=== PATIENT | male | born 1970 | race Caucasian/White ===

== ENCOUNTER 2018-10-26 12:17 | Inpatient (IN) | payer OTHER ==
[2018-10-26] MEDS ORDERED: PROPOFOL 1,000 MG/100 ML VIAL IV ONE (12:36)
[2018-10-26 13:08] LABS: Absolute Lymphocytes (CBC) 3.5 K/uL (0.7-4.9); Absolute Monocytes 0.1 K/uL (0.1-1.3); Basophils % 0.4 % (0-1.3); Eosinophils % 2.1 % (0-4.4); Hematocrit 44.3 % (39.6-49.0); Lymphocytes % 27.1 % (15.3-44.8); MPV 9.2 fL (7.6-11.3); Monocytes % 1.1 % (3.3-12.3); RBC Red Blood Cell Count 4.82 M/uL (4.33-5.43)
[2018-10-26 13:12] LABS: Protime INR 1.18
[2018-10-26 13:14] LABS: Barbiturates NEGATIVE (NEGATIVE); Benzodiazepines NEGATIVE (NEGATIVE); Cocaine POSITIVE (NEGATIVE); METHAMPHETAM NEGATIVE (NEGATIVE); Methadone NEGATIVE (NEGATIVE); Opiates NEGATIVE (NEGATIVE); Phencyclidine NEGATIVE (NEGATIVE); THC Cannibis NEGATIVE (NEGATIVE)
--- NOTE | 2018-10-26 13:24 | RAD REPORT ---
EXAM DESCRIPTION: CT - Head Brain Wo Cont - 10/26/2018 1:08 pm CLINICAL HISTORY: Unresponsive COMPARISON: None TECHNIQUE: Computed axial tomography of the head was obtained. IV contrast was not requested. All CT scans are performed using dose optimization technique as appropriate and may include automated exposure control or mA/KV adjustment according to patient size. FINDINGS: An intracranial bleed is not seen . The ventricles are normal in caliber. No extra-axial fluid collection is noted. Fluid within the sinuses/ mastoids is not seen. Mucus retention cysts maxillary sinus IMPRESSION: No acute intracranial abnormality is seen. If patient's symptoms persist MRI of the bra in would be recommended.
[2018-10-26] MEDS ORDERED: VECURONIUM 10 MG/VIAL IV ONE ×2 (13:30→14:41)
[2018-10-26 13:48] LABS: Urine Blood TRACE (NEG); Urine Glucose NEGATIVE (NEG); Urine Protein 2+ (NEG); Urine Specific Gravity 1.025 (1.005-1.030); Urine pH 5.5 (5.0-7.0)
--- NOTE | 2018-10-26 13:56 | RAD REPORT ---
EXAM DESCRIPTION: Rubens Single View10/26/2018 12:53 pm CLINICAL HISTORY: Unresponsive COMPARISON: none FINDINGS: Endotracheal tube lies along the low The lungs appear clear of acute infiltrate. The heart is normal size Lucency is seen within the left upper quadrant IMPRESSION: Lucency within left upper quadrant probably representing air within bowel. Pneumoperito neum could also have this appearance. If the patient has clinical symptoms to suggest a perforated maxx wel a CT scan would be recommended. Dr Goff notified 1:50 p.m. October 26, 2018
[2018-10-26] MEDS ORDERED: NA CHLORIDE 0.9% 1,000 ML ONE (13:58)
[2018-10-26] MEDS ORDERED: METRONIDAZOLE 500mg IVPB 500 MG/100 ML BAG IV ONE (14:36)
[2018-10-26] MEDS ORDERED: Levofloxacin500mg IV 500 MG/100 ML BAG IV ONE (14:36)
[2018-10-26 14:43] LABS: ALT/SGPT 38 U/L (12-78); AST/SGOT 30 U/L (15-37); Albumin 3.4 g/dL (3.4-5.0); Alkaline Phosphatase 72 U/L (45-117); BUN Blood Urea Nitrogen 14 mg/dL (7-18); Bicarbonate 22 mmol/L (21-32); Bilirubin Direct 0.3 mg/dL (0-0.2); Glucose Level 207 mg/dL (74-106); Magnesium 1.8 mg/dL (1.8-2.4); NT PRO-BNP 11 pg/mL (<125); Protein, Total 6.4 g/dL (6.4-8.2); Sodium Level 144 mmol/L (136-145); Troponin (Emerg Dept Use Only) < 0.02 ng/mL (0.0-0.045)
[2018-10-26 14:45] LABS: Potassium 2.8 mmol/L (3.5-5.1)
[2018-10-26] MEDS ORDERED: VANCOMYCIN 1.5 GM in NA CHLORIDE 0.9% 500 ML IVPB ONE (15:00)
[2018-10-26 15:05] LABS: Barbiturates NEGATIVE (NEGATIVE); Benzodiazepines NEGATIVE (NEGATIVE); Cocaine POSITIVE (NEGATIVE); METHAMPHETAM NEGATIVE (NEGATIVE); Methadone NEGATIVE (NEGATIVE); Opiates NEGATIVE (NEGATIVE); Phencyclidine NEGATIVE (NEGATIVE); THC Cannibis NEGATIVE (NEGATIVE)
--- NOTE | 2018-10-26 15:19 | RAD REPORT ---
EXAM DESCRIPTION: CT - Chest Abdomen Pelvis W Cont - 10/26/2018 2:57 pm CLINICAL HISTORY: Chest pain, abdominal pain, abnormal chest film with possible intraperitoneal free air COMPARISON: Chest film October 26 TECHNIQUE: Following dynamic enhancement using 100 milliliters nonionic IV contrast, axial imaging o f the chest, abdomen and pelvis was performed. Biphasic technique was utilized through the abdomen. Oral contrast was administered. All CT scans are performed using dose optimization technique as appropriate and may include automated exposure control or mA/KV adjustment according to patient size. FINDINGS: Bilateral partial atelectasis of each lower lobe. Trace pleural fluid present. No suspicio us mass or consolidation. No pneumothorax. No significant aortic or pulmonary arterial tree finding. Mediastinal and hilar regions show no mass or abnormal lymphadenopathy. No chest wall mass or axillar y lymphadenopathy. No pericardial thickening or effusion. Endotracheal tube is in place with the tip terminating 2 cm above the low. NG tube extends into the stomach. The liver, spleen and pancreas show no suspicious findings. Gallbladder and biliary tree are unremark able. Gallstones can be occult on CT imaging. Symmetric renal function is seen with no mass or hydro nephrosis. No adrenal abnormalities. No acute small bowel or large bowel finding. Stomach is unremarkable. There is no appendicitis. No pe rforation or active bowel process identifiable. No free air, free fluid or inflammatory stranding. Pu nctate amount of air present in the urinary bladder not unexpected. A Sanchez catheter has been placed. No acute or destructive bony process. No significant vascular findings. IMPRESSION: No free air. CT chest shows partial atelectasis each lower lobe. No significant CT chest finding. ET tube and NG tube well positioned. No acute finding of the solid abdominal visceral or bowel. Liver is fatty infiltrated.
--- NOTE | 2018-10-26 15:58 | P.HP ---
Certification for Inpatient Patient admitted to: Inpatient With expected LOS: >2 Midnights Patient will require the following post-hospital care: None Practitioner: I am a practitioner with admitting privileges, knowledge of patient current condition, hospital course, and medical plan of care. Services: Services provided to patient in accordance with Admission requirements found in Title 42 Section 412.3 of the Code of Federal Regulations Patient History Date of Service: 10/26/18 Primary Care Provider: Dr. Galloway Reason for admission: Syncope History of Present Illness: 48 yo CM presented to the ER intubated by EMS. Most of the history came from the ER physician and family. Family reports that the patient was to doing well early this morning. His had seen him in bed. His son had seen him around 10:30. Then around 11 o' clock the son heard a thud. He was found on the ground. He EMS was immediately called. EMS noted that he was tachycardic and hypotensive. He was also agitated at that time he was intubated. Patient was sent to the ER for further evaluation. and son report that the patient was doing well over the last day and this morning. No indication of fever, chills, nausea, vomiting , chest pain, abdominal pain. Patient with prior history of hypertension and takes losartan. In the ER patient remained intubated. On lab he was found to be positive for cocaine. CT head unremarkable. White count 12.9, pro calcitonin negative. Lactic acid elevated. Initial troponin less than 0.02. Sodium 144, potassium 2.8, BUN of 14, creatinine 1.29 with a GFR 60. CT chest/abdomen and pelvis unremarkable except for atelectasis and fatty liver. Patient was admitted for further evaluation. When I saw the patient the ER, patient was alert. Family at bedside. reports that the patient has never used drugs in the past. reports that he drinks 3 times a week. He drinks about 8-10 beers a day. confirms that he has hypertension and takes losartan. No other major medical issues noted. Allergies No Known Allergies Allergy (Verified 10/26/18 15:15) Home medications list reviewed: Yes - Past Medical/Surgical History Diabetic: No -: Hypertension -: Former tobacco use Past Surgical History: Reviewed- Non-Contributory Psychosocial/ Personal History: Patient is - Family History Father -: Heart disease - Social History Smoking Status: Former smoker Alcohol use: Yes CD- Drugs: Yes Caffeine use: Yes Place of Residence: Home Review of Systems is unable to be obtained Physical Examination - Physical Exam General: Alert, Other (Patient currently intubated and mildly sedated) HEENT: Atraumatic, Normocephalic, Mucous membr. moist/pink Neck: Supple, No Thyromegaly Respiratory: Clear to auscultation bilaterally, Normal air movement Cardiovascular: Normal pulses, Regular rate/rhythm Gastrointestinal: Normal bowel sounds, Soft and benign, Non-distended, No ascites, No tenderness, No masses, No rebound, No guarding Musculoskeletal: No erythema, No tenderness, No warmth Integumentary: No tenderness/swelling, No erythema, No warmth, No cyanosis Neurological: Normal strength at 5/5 x4 extr, Normal tone, Normal affect - Studies Laboratory Data (last 24 hrs) 10/26/18 12:30: APTT 62.5 H 10/26/18 12:30: PT 13.8 H, INR 1.18 10/26/18 12:30: WBC 12.9 H, Hgb 15.1, Hct 44.3, Plt Count 298 10/26/18 12:30: Sodium 144, Potassium 2.8 L*, BUN 14, Creatinine 1.29, Glucose 207 H, Magnesium 1.8, Total Bilirubin 1.0, AST 30, ALT 38, Alkaline Phosphatase 72 Assessment and Plan - Plan Impression: Syncope with initial noted hypotension with tachycardia, etiology unknown found unresponsive now intubated complicated with cocaine positive finding Acute respiratory distress Hypertension Cocaine positive Fatty liver Hypokalemia Dehydration Plan: Syncope with initial noted hypotension with tachycardia, etiology unknown found unresponsive now intubated complicated with cocaine positive finding: Patient with syncope and found unresponsive. Patient currently intubated but to be extubated. Pro calcitonin negative. White count slightly elevated. Troponin unremarkable. Patient with positive cocaine. Suspect syncope related to cardiac in nature. Will consult cardiology to further evaluate. Will continue to monitor cardiac enzymes. Patient to be extubated soon. Will start aspirin, DVT prophylaxis-Lovenox, statin medication and hypertensive medication. Also obtain echocardiogram, carotid Doppler and stroke protocol MRI to further assess. Blood cultures obtained. Pulmonology consulted to further assess. Patient may require further cardiac evaluation. Will continue to reassess. Acute respiratory distress with atelectasis: Patient was intubated at home by EMS. Patient to be extubated soon. Patient alert. Will maintain sats above 90 %. Will monitor closely. Pulmonology to further evaluate. Doubt sepsis as the patient was to wean well prior to intubation. No evidence of fever, chills. Hypertension: Will provide medication. Cocaine positive: New finding noted. Family reports no prior history of cocaine abuse Fatty liver: Will address education Hypokalemia: Will replace potassium and monitor closely. Dehydration: Continue IV fluids. Will monitor and adjust appropriately. Discharge Plan: Home Plan to discharge in: Greater than 2 days - Advance Directives Does patient have a Living Will: No Does patient have a Durable POA for Healthcare: No - Code Status/Comfort Care Code Status Assessed: Yes (Patient full code.) Time Spent Managing Pts Care (In Minutes): 55
[2018-10-26] MEDS ORDERED: POTASSIUM 25 MEQ EFFERV TAB ONE (16:36)
[2018-10-26] MEDS ORDERED: KCL 20 MEQ/100 mL IVPB 20 MEQ/100 ML BAG IV ONE (16:37)
[2018-10-26] MEDS ORDERED: ONDANSETRON 4 MG/2 ML VIAL ONE (17:13)
--- NOTE | 2018-10-26 18:03 | EDPHYS ---
Physician Documentation [facility] Name: Sorin Prieto Age: 48 yrs Sex: Male : 1970 Arrival Date: 10/26/2018 Time: 12:19 Bed 4 Private MD: ED Physician Jamshid Goff HPI: 10/26 14:44 This 48 yrs old Male presents to ER via EMS with complaints of Unresponsive. kdr 14:44 The patient presents with decreased responsiveness. Onset: The symptoms/episode kdr began/occurred just prior to arrival, this morning, at an unknown time. Possible causes: CVA or TIA, drug use, alcohol, head injury, seizure, sepsis. Associated signs and symptoms: The patient has no apparent associated signs or symptoms. Current symptoms: In the emergency department the patient's symptoms are unchanged from the initial presentation. Patient's baseline: Neuro: alert and fully oriented, Motor: no deficits, Ambulation: walks without assistance, Speech: normal, The patient has a previous history of EtOH use. It is unknown whether or not the patient has had similar symptoms in the past. It is unknown whether or not the patient has recently seen a physician. 18:03 Since the patient has been extubated, he states he does not know what happened. He kdr remembers just dropping to his knees and then blacking out. He does not know why he had this problem and denies drug use other than alcohol.. Historical: - Allergies: 13:33 No Known Allergies; sv - Home Meds: 13:33 losartan oral oral [Active]; sv - PMHx: 13:33 Hypertension; sv - PSHx: 13:33 None; sv - Immunization history:: Adult Immunizations unknown. - Social history:: Smoking status: Patient/guardian denies using tobacco, the patient reports quitting approximately .5 years ago. - Ebola Screening: : No symptoms or risks identified at this time. ROS: 14:44 Constitutional: Unable to obtqain as the patient is unresponsive kdr 14:44 Unable to obtain ROS due to obtunded state. Exam: 14:47 Constitutional: This is a well developed, well nourished patient who is intubated but kdr o/w in NAD Head/Face: Normocephalic, atraumatic. Neck: Trachea midline, no thyromegaly or masses palpated, and no cervical lymphadenopathy. Supple, full range of motion without nuchal rigidity, or vertebral point tenderness. No Meningismus. Chest/axilla: Normal chest wall appearance and motion. Nontender with no deformity. No lesions are appreciated. Cardiovascular: Regular rate and rhythm with a normal S1 and S2. No gallops, murmurs, or rubs. Normal PMI, no JVD. No pulse deficits. Respiratory: Lungs have equal breath sounds bilaterally, clear to auscultation and percussion. No rales, rhonchi or wheezes noted. No increased work of breathing, no retractions or nasal flaring. Abdomen/GI: Soft, non-tender, with normal bowel sounds. No distension or tympany. No guarding or rebound. No evidence of tenderness throughout. Back: No spinal tenderness. No costovertebral tenderness. Full range of motion. Skin: Warm, dry with normal turgor. Normal color with no rashes, no lesions, and no evidence of cellulitis. MS/ Extremity: Pulses equal, no cyanosis. Neurovascular intact. Full, normal range of motion. 14:47 Eyes: Pupils: constricted, bilaterally. Vital Signs: 12:21 BP 162 / 105; Pulse 124; Resp 20; Pulse Ox 99% on ETT ambu; sv 12:30 BP 166 / 110; Pulse 113; Resp 16; Pulse Ox 99% on ETT ambu; sv 12:45 BP 162 / 110; Pulse 99; Resp 16; Pulse Ox 97% on ETT ambu; sv 12:54 Weight 99.79 kg; sv 13:15 BP 188 / 161; Pulse 121; Resp 17; Pulse Ox 99% on ETT ambu; sv 13:23 BP 144 / 101; Pulse 137; Resp 24; Pulse Ox 97% on ETT ambu; sv 13:30 BP 118 / 86; Pulse 105; Resp 16; Pulse Ox 99% on ETT vent; sv 13:45 BP 125 / 85; Pulse 99; Resp 16; Temp 96.1(C); Pulse Ox 99% on ETT vent; sv 14:00 BP 111 / 77; Pulse 87; Resp 16; Pulse Ox 100% on ETT vent; sv 14:30 BP 126 / 80; Pulse 100; Resp 16; Pulse Ox 100% on ETT vent; sv 15:00 BP 163 / 110; Pulse 102; Resp 20; Temp 96.1(C); Pulse Ox 100% on ETT ambu; sv 15:06 BP 146 / 89; Pulse 94; Resp 13; Pulse Ox 100% on ETT ambu; sv 15:15 BP 132 / 85; Pulse 85; Resp 16; Temp 96.1(C); Pulse Ox 100% on ETT vent; sv 15:45 BP 135 / 100; Pulse 91; Resp 16; Pulse Ox 100% on ETT vent; sv 16:00 BP 146 / 101; Pulse 92; Resp 17; Pulse Ox 99% on ETT vent; sv 16:30 BP 151 / 111; Pulse 98; Resp 16; Pulse Ox 100% on ETT vent; sv 16:46 BP 164 / 114; Pulse 106; Resp 16; Temp 96.5(C); Pulse Ox 100% on 2 lpm NC; sv 16:58 BP 151 / 95; Pulse 91; Resp 14; Temp 97.8(O); Pulse Ox 100% on 2 lpm NC; bb 17:26 BP 156 / 98; Pulse 96; Resp 16; Pulse Ox 99% on 2 lpm NC; sv 19:17 BP 159 / 108; Pulse 94; Resp 11; Pulse Ox 100% on 2 lpm NC; tl2 19:42 BP 150 / 106; Pulse 83; Resp 12; Pulse Ox 100% on 2 lpm NC; bb Tom Coma Score: 12:20 Eye Response: to pain(2). Verbal Response: none(1). Motor Response: withdraws from sv pain(4). Modifying Factors: Intubated. Modifying Factors: Medicated. Total: 7. 17:26 Eye Response: spontaneous(4). Verbal Response: oriented(5). Motor Response: obeys sv commands(6). Total: 15. MDM: 14:47 Data reviewed: vital signs, nurses notes, residential records, lab test result(s), EKG.kdr 18:02 Patient medically screened. kdr 10/26 12:24 Order name: Basic Metabolic Panel; Complete Time: 15:33 kdr 10/26 12:24 Order name: CBC with Diff; Complete Time: 13:27 kdr 10/26 12:24 Order name: LFT's; Complete Time: 15:33 kdr 10/26 12:24 Order name: Magnesium; Complete Time: 15:33 kdr 10/26 12:24 Order name: NT PRO-BNP; Complete Time: 15:33 kdr 10/26 12:24 Order name: PT-INR; Complete Time: 13:27 kdr 10/26 12:24 Order name: Troponin (emerg Dept Use Only); Complete Time: 15:33 kdr 10/26 12:25 Order name: Acetaminophen; Complete Time: 15:33 kdr 10/26 12:25 Order name: ETOH Level; Complete Time: 13:37 kdr 10/26 12:25 Order name: Ptt, Activated; Complete Time: 13:27 kdr 10/26 12:25 Order name: Salicylate; Complete Time: 14:14 kdr 10/26 12:25 Order name: Urine Drug Screen; Complete Time: 13:27 kdr 10/26 12:44 Order name: Blood Culture Adult (2) hb 10/26 12:44 Order name: Lactate; Complete Time: 13:37 hb 10/26 12:24 Order name: XRAY Chest (1 view); Complete Time: 14:14 kdr 10/26 12:25 Order name: CT Head Brain wo Cont; Complete Time: 13:27 kdr 10/26 12:44 Order name: Procalcitonin; Complete Time: 13:44 hb 10/26 12:55 Order name: Urine Dipstick--Ancillary (enter results); Complete Time: 14:14 em1 10/26 14:28 Order name: Urine Drug Screen; Complete Time: 15:33 sv 10/26 14:42 Order name: Chest Abdomen Pelvis W Cont; Complete Time: 15:33 EDMS 10/26 16:40 Order name: Lactate Sepsis 2 HR Follow-up EDSC 10/26 19:24 Order name: MRI EDMS 10/26 19:26 Order name: MRI EDMS 10/26 19:29 Order name: MRI EDMS 10/26 12:24 Order name: EKG; Complete Time: 12:26 kdr 10/26 12:24 Order name: Cardiac monitoring; Complete Time: 12:56 kdr 10/26 12:24 Order name: EKG - Nurse/Tech; Complete Time: 14:46 kdr 10/26 12:24 Order name: IV Saline Lock; Complete Time: 12:56 kdr 10/26 12:24 Order name: Labs collected and sent; Complete Time: 12:56 kdr 04/19 12:24 Order name: O2 Per Protocol; Complete Time: 12:56 kdr 10/26 12:24 Order name: O2 Sat Monitoring; Complete Time: 12:56 kdr 10/26 12:25 Order name: Urine Dipstick-Ancillary (obtain specimen); Complete Time: 12:51 kdr 10/26 15:33 Order name: Restraint:Non-Violent; Complete Time: 15:33 sv Administered Medications: Discontinued: Propofol 5 mcg/kg/min IV at calculated rate continuous; titrate per protocol (titrate by 5-10mcg/kg/min every 10 min to max rate of 50 mcg/kg/min) 12:30 Drug: Propofol 5 mcg/kg/min Route: IV; Rate: calculated rate; Site: right antecubital; sv 13:05 Follow up: Rate change 10 calculated rate sv 13:10 Follow up: Rate change 15 calculated rate sv 14:32 Follow up: Rate change 25 calculated rate sv 15:45 Follow up: Rate change 15 calculated rate; Decrease per Dr Goff to get ready for sv extubation. 13:22 Drug: VecuroNIUM 10 mg Route: IVP; Site: right antecubital; sv 13:49 Follow up: Response: No adverse reaction; Marked relief of symptoms sv 13:49 Drug: NS 0.9% 1000 ml Route: IV; Rate: 1000 ml; Site: right antecubital; sv 14:45 Follow up: Response: No adverse reaction; IV Status: Completed infusion; IV Intake: sv 1000ml 14:32 Drug: VecuroNIUM 10 mg Route: IVP; Site: right antecubital; sv 15:00 Follow up: Response: No adverse reaction; Marked relief of symptoms sv 15:11 Drug: LevaQUIN 500 mg Volume: 100 ml; Route: IVPB; Infused Over: 60 mins; Site: left sv antecubital; 16:11 Follow up: Response: No adverse reaction; IV Status: Completed infusion; IV Intake: tw2 100ml 15:11 Drug: Flagyl 500 mg Volume: 100 ml; Route: IVPB; Rate: 200 ml/hr; Infused Over: 30 sv mins; Site: left antecubital; 16:10 Follow up: Response: No adverse reaction; IV Status: Completed infusion; IV Intake: tw2 100ml 16:11 Drug: vancoMYCIN 1.5 grams Route: IVPB; Rate: calculated rate; Site: left antecubital; tw2 19:16 Follow up: IV Status: Completed infusion; IV Intake: 500ml tl2 16:30 Drug: Potassium Chloride 20 mEq Route: IV; Rate: calculated rate; Site: right sv antecubital; 19:46 Follow up: IV Status: Completed infusion; IV Intake: 100ml bb 16:30 Drug: Potassium Effervescent Tablet 50 mEq Route: PO; sv 17:07 Follow up: Response: No adverse reaction sv 16:54 CANCELLED (Physician Discretion): Potassium Chloride 40 mEq PO once sv 17:06 Drug: Zofran 4 mg Route: IVP; Site: right antecubital; sv 17:07 Follow up: Response: No adverse reaction sv Disposition: 10/26/18 18:02 Hospitalization ordered by Elvin Samaniego for Observation. Preliminary diagnosis is Altered mental status, unspecified. - Bed requested for Intensive Care Unit. - Status is Observation. bb - Condition is Fair. - Problem is new. - Symptoms have improved. UTI on Admission? No Signatures: Dispatcher [employer] EDSC Gwen Clark RN RN sv Jamshid Goff MD MD kdr Nicole Hansen RN RN bb Martinez, Eric em1 Zoe Prajapati RN RN tw2 Janis Mills RN tl2 Corrections: (The following items were deleted from the chart) 14:42 14:16 Chest Abdomen W/ Con+CT.RAD.BRZ ordered. EDSC EDMS 16:54 15:46 Potassium Chloride 40 mEq PO once ordered. [facility] 16:54 16:54 Potassium Chloride 40 mEq PO once ordered. sv sv 18:23 18:02 Hospitalization Ordered by Elvin Samaniego DO for Observation. Preliminary em1 diagnosis is Altered mental status, unspecified. Bed requested for Telemetry/MedSurg (observation). Status is Observation. Condition is Fair. Problem is new. Symptoms have improved. UTI on Admission? No. kdr 20:11 18:23 10/26/2018 18:02 Hospitalization Ordered by Elvin Samaniego DO for Observation. bb Preliminary diagnosis is Altered mental status, unspecified. Bed requested for Intensive Care Unit. Status is Observation. Condition is Fair. Problem is new. Symptoms have improved. UTI on Admission? No. em1
--- NOTE | 2018-10-26 18:03 | ER ---
Nurse's Notes [facility] Name: Sorin Prieto Age: 48 yrs Sex: Male : 1970 Arrival Date: 10/26/2018 Time: 12:19 Bed 4 Private MD: Diagnosis: Altered mental status, unspecified Presentation: 10/26 12:17 Presenting complaint: EMS states: was found unrespsonsive by the son slumped over about sv 45 mins PRIMARY TEACHING ASSISTANT of EMS. Last seen by family was around 1030. On EMS arrival pt had agonal respirations, hypotensive, weak pulses and found the gun safe open. Pt was intubated on scene given, Fentanyl 150 mcg, Ketamine 200 mg, Succ 150 mg, Rocuronium 100 mg, ETtube-8.0 24-teeth, 18F NGT placed to left nare, 20 G R hand and left humoral IO started. Levophed was started and stopped PRIMARY TEACHING ASSISTANT to ER. Pt was not incontinent of urine, pupils were reactive, EKG-ST w/ ST depression, BS-190,NS 1L bolus given.. BP 143/82. Transition of care: patient was not received from another setting of care. Onset of symptoms was October 26, 2018. Initial Sepsis Screen: Does the patient meet any 2 criteria? Altered Mental Status. HR > 90 bpm. Yes Does the patient have a suspected source of infection? No. Patient's initial sepsis screen is negative. Care prior to arrival: Oral intubation, IV initiated. 20 GA, in the right hand, Glucose check: 190 Oxygen administered. via AMBU bag. 12:17 Method Of Arrival: EMS: [facility] sv 12:55 Acuity: DEV 1 sv 13:20 Presenting complaint: states: no recent complaints of chest pain, SOB, cough, sv congestion, no family issues or stressors. Reports that he was asleep around 0730 on the couch and went to work. Pt was found by the son slumped over on the floor. 13:43 Risk Assessment: Do you want to hurt yourself or someone else? Unable to obtain Other: sv pt intubated and sedated. Triage Assessment: 12:20 General: Appears well developed, Behavior is unresponsive. intubated. Pain: Unable to sv use pain scale. FLACC scale score is 0 out of 10. Patient is intubated. Patient is unresponsive. Neuro: Level of Consciousness is unresponsive. Cardiovascular: Heart tones S1 S2 present Patient's skin is warm and dry. Pulses are 3+ in right radial artery, right dorsalis pedis artery, left radial artery and left dorsalis pedis artery Rhythm is sinus tachycardia. Respiratory: Airway via oral intubation Respiratory effort is even, unlabored, Respiratory pattern is symmetrical, tachypnea Breath sounds are clear bilaterally. GI: NGT in place, clamped. Site clean. Derm: Skin is pink, warm \T\ dry. Historical: - Allergies: 13:33 No Known Allergies; sv - Home Meds: 13:33 losartan oral oral [Active]; sv - PMHx: 13:33 Hypertension; sv - PSHx: 13:33 None; sv - Immunization history:: Adult Immunizations unknown. - Social history:: Smoking status: Patient/guardian denies using tobacco, the patient reports quitting approximately .5 years ago. - Ebola Screening: : No symptoms or risks identified at this time. Screenin:00 Abuse screen: unable to assess, pt intubated and sedated. sv 13:36 Nutritional screening: No deficits noted. Tuberculosis screening: No symptoms or risk sv factors identified. Fall Risk No fall in past 12 months (0 pts). Secondary diagnosis (15 points) impaired mobility, restrained. IV access (20 points). Ambulatory Aid- None/Bed Rest/Nurse Assist (0 pts). Gait- Impaired (20 pts.). Mental Status- Overestimates/Forgets Limitations (15 pts.). Total Young Fall Scale indicates High Risk Score (45 or more points). Fall prevention measures have been instituted. Side Rails Up X 2 Placed Close to Nursing Station Frequent Obs/Assessments Occuring As available patient and family educated on Fall Prevention Program and Strategies. Assessment: 12:59 Reassessment: Pt transported to CT via stretcher with nurse and RT. Reassessment: Pt hb returned from CT. 13:04 General: Behavior is agitated, restless, uncooperative. Respiratory: Respiratory effort sv is even, unlabored, Respiratory pattern is regular, symmetrical. 13:09 General: Behavior is agitated, restless, uncooperative. sv 13:20 General: Behavior is agitated, restless, uncooperative. Respiratory: Airway via oral sv intubation Respiratory effort is even, unlabored, Respiratory pattern is regular, symmetrical. 13:41 Reassessment: Dr Goff at the bedside speaking with the family. sv 13:43 Reassessment: Spouse reports he has been hanging around a new friend recently. sv 14:30 Reassessment: Dr Samaniego at the bedside speaking with the family. sv 14:30 General: Behavior is agitated, restless, uncooperative. Respiratory: Airway via oral sv intubation Respiratory effort is even, unlabored, Respiratory pattern is regular, symmetrical. 15:16 Reassessment: Patient appears in no apparent distress at this time. Pt remains sv intubated and sedated. 15:47 Reassessment: Patient appears in no apparent distress at this time. Patient and/or sv family updated on plan of care and expected duration. Pain level reassessed. Dr Goff at bedside speaking with the family and pt. Pt informed that we will be decreasing the sedation medicine to be able to extubate him. Family able to nod his head yes that he understands. Family at bedside. 16:15 Reassessment: Erika RT at bedside. sv 16:40 Reassessment: Pt extubated by Erika PAZ. sv 17:03 Reassessment: Patient and/or family updated on plan of care and expected duration. Pain sv level reassessed. Patient is alert, oriented x 3, equal unlabored respirations, skin warm/dry/pink. GI: Pt is actively vomiting undigested food, Order received from Dr Goff, see EMAR. 17:08 Reassessment: Patient appears in no apparent distress at this time. Patient and/or sv family updated on plan of care and expected duration. Pain level reassessed. Patient is alert, oriented x 3, equal unlabored respirations, skin warm/dry/pink. Pt talking and joking with family. Patient states feeling better. Patient states symptoms have improved. 17:15 Reassessment: Patient appears in no apparent distress at this time. Patient and/or sv family updated on plan of care and expected duration. Pain level reassessed. Patient is alert, oriented x 3, equal unlabored respirations, skin warm/dry/pink. Pt reports the last thing he remembers is watching tv. 17:40 Reassessment: Patient appears in no apparent distress at this time. Patient and/or sv family updated on plan of care and expected duration. Pain level reassessed. Patient is alert, oriented x 3, equal unlabored respirations, skin warm/dry/pink. Patient denies pain at this time. Patient states feeling better. Patient states symptoms have improved. 18:54 Reassessment: Patient appears in no apparent distress at this time. Patient and/or sv family updated on plan of care and expected duration. Pain level reassessed. Patient is alert, oriented x 3, equal unlabored respirations, skin warm/dry/pink. Patient denies pain at this time. Patient states feeling better. Patient states symptoms have improved. 19:17 General: Appears in no apparent distress. uncomfortable, Behavior is cooperative, tl2 appropriate for age, anxious. Pain: Complains of pain in throat, left shoulder. Neuro: Level of Consciousness is awake, alert, obeys commands, Oriented to person, place, time, situation. Cardiovascular: Denies chest pain, Patient's skin is warm and dry. Rhythm is sinus rhythm. Respiratory: Airway is patent Respiratory effort is even, unlabored, Respiratory pattern is regular, symmetrical, Breath sounds are clear bilaterally. GI: Abdomen is non-distended, Patient currently denies nausea. : No signs and/or symptoms were reported regarding the genitourinary system. Derm: Skin is pink, warm \T\ dry. 19:44 Reassessment: pt is A\T\O x 4, resp unlabored, IV sites intact, no erythema or edema bb noted, report called to Cesilia RN for ICU 7 pt transported via stretcher accompanied by RN and tech. Vital Signs: 12:21 BP 162 / 105; Pulse 124; Resp 20; Pulse Ox 99% on ETT ambu; sv 12:30 BP 166 / 110; Pulse 113; Resp 16; Pulse Ox 99% on ETT ambu; sv 12:45 BP 162 / 110; Pulse 99; Resp 16; Pulse Ox 97% on ETT ambu; sv 12:54 Weight 99.79 kg; sv 13:15 BP 188 / 161; Pulse 121; Resp 17; Pulse Ox 99% on ETT ambu; sv 13:23 BP 144 / 101; Pulse 137; Resp 24; Pulse Ox 97% on ETT ambu; sv 13:30 BP 118 / 86; Pulse 105; Resp 16; Pulse Ox 99% on ETT vent; sv 13:45 BP 125 / 85; Pulse 99; Resp 16; Temp 96.1(C); Pulse Ox 99% on ETT vent; sv 14:00 BP 111 / 77; Pulse 87; Resp 16; Pulse Ox 100% on ETT vent; sv 14:30 BP 126 / 80; Pulse 100; Resp 16; Pulse Ox 100% on ETT vent; sv 15:00 BP 163 / 110; Pulse 102; Resp 20; Temp 96.1(C); Pulse Ox 100% on ETT ambu; sv 15:06 BP 146 / 89; Pulse 94; Resp 13; Pulse Ox 100% on ETT ambu; sv 15:15 BP 132 / 85; Pulse 85; Resp 16; Temp 96.1(C); Pulse Ox 100% on ETT vent; sv 15:45 BP 135 / 100; Pulse 91; Resp 16; Pulse Ox 100% on ETT vent; sv 16:00 BP 146 / 101; Pulse 92; Resp 17; Pulse Ox 99% on ETT vent; sv 16:30 BP 151 / 111; Pulse 98; Resp 16; Pulse Ox 100% on ETT vent; sv 16:46 BP 164 / 114; Pulse 106; Resp 16; Temp 96.5(C); Pulse Ox 100% on 2 lpm NC; sv 16:58 BP 151 / 95; Pulse 91; Resp 14; Temp 97.8(O); Pulse Ox 100% on 2 lpm NC; bb 17:26 BP 156 / 98; Pulse 96; Resp 16; Pulse Ox 99% on 2 lpm NC; sv 19:17 BP 159 / 108; Pulse 94; Resp 11; Pulse Ox 100% on 2 lpm NC; tl2 19:42 BP 150 / 106; Pulse 83; Resp 12; Pulse Ox 100% on 2 lpm NC; bb [place] Coma Score: 12:20 Eye Response: to pain(2). Verbal Response: none(1). Motor Response: withdraws from sv pain(4). Modifying Factors: Intubated. Modifying Factors: Medicated. Total: 7. 17:26 Eye Response: spontaneous(4). Verbal Response: oriented(5). Motor Response: obeys sv commands(6). Total: 15. ED Course: 12:17 Maintain EMS IV. Dressing intact. Site clean \T\ dry. Gauge \T\ site: 20G R hand. IO to the sv left humoral head. 12:19 Patient arrived in ED. em1 12:19 Arm band placed on. tw2 12:20 land reclamation specialist on. Pulse ox on. NIBP on. sv 12:23 Jamshid Goff MD is Attending Physician. kdr 12:25 Sanchez cath inserted, using sterile technique, 18 Fr., by per diem nurse, balloon inflated, to sv gravity drainage, urine specimen collected. other done by Grady Baker surveillance technician returned clear yellow urine. 12:26 EKG done, by windows technical specialist. reviewed by Jamshid Goff MD. sm3 12:30 Initial lab(s) drawn, by me, sent to lab. First set of blood cultures drawn by me. sv Inserted saline lock: 18 gauge in right antecubital area, using aseptic technique. Blood collected. Flushed right antecubital with 5 ml normal saline. 12:30 Patient has correct armband on for positive identification. Placed in gown. Bed in low sv position. Call light in reach. Side rails up X2. 12:35 16f OG placed, verified by auscultation and gastric content return, placed on tw2 intermittent suction. 12:45 Second set of blood cultures drawn by me. sv 12:51 X-ray completed. Portable x-ray completed in exam room. Patient tolerated procedure jb2 well. 12:51 XRAY Chest (1 view) In Process Unspecified. EDMS 12:55 Gwen Clark, RN is Primary Nurse. sv 12:55 Triage completed. sv 12:56 CT Head Brain wo Cont In Process Unspecified. EDMS 13:[address] stretcher. sv 13:33 Notified ED physician of a critical lab result(s). LACTATE 5.0. hb 13:38 Awaiting lab results, Awaiting radiology results. sv 14:45 Notified ED physician of a critical lab result(s). K 2.8. hb 14:50 Inserted saline lock: 20 gauge in left antecubital area, using aseptic technique. sv Flushed left antecubital with 5 ml normal saline. 14:[address] via stretcher. sv 14:57 Chest Abdomen Pelvis W Cont In Process Unspecified. EDMS 15:07 Patient moved back from CT. sv 16:39 Notified ED physician of a critical lab result(s). LACTATE 4.6 Notified primary nurse tw2 of lactate results. 16:40 NGT: Removed intact. sv 17:47 Sanchez cath removed intact, balloon deflated. sv 17:51 Patient moved to MRI via stretcher. sv 18:01 Elvin Samaniego DO is Hospitalizing Provider. kdr 18:53 Patient moved back from MRI. sv 19:03 Report given to Beth RN and Janis RN. sv 19:04 Primary Nurse role handed off by Gwen Clark RN sv Restraints: 12:35 Non-Violent Restraint: Order obtained. Initiated on October 26, 2018 at 12:35 Unable to sv provide Restraint education. pt intubated and sedated. Actions/Behavior observed: Confused/disoriented, has difficulty remembering/follow instructions, has impaired decision making, has decreased level of consciousness, unable to follow instructions, repeated attempts to remove/tamper lines/tubes/IV med devices \T\ wound dressing, Less restrictive alternatives attempted: decrease environmental stimuli, 1:1 patient care, placed near Nurse station, lines/tubes covered, eliminated unnecessary lines/tubes, Alternative interventions: Ineffective. Clinical justification for use: airway protection, line protection, patient safety, Mental status: agitated/restless, confused, Cognition: poor judgement, poor safety awareness, impulsive, poor attention/concentration, unable to follow commands, Circulation: Within defined parameters (based on Cardiovascular assessment) Skin integrity: Within defined parameters (based on Integumentary assessment) Signs of injury related to restraint: No injuries noted. Elimination/Hygiene: with urinary catheter, Restraint status: Side rails up x 4 Started. Soft wrist restraint (Right) Started. Soft wrist restraint (Left) Started. Criteria to discontinue Restraint not met. Restraint continued. 14:35 Non-Violent Restraint: Actions/Behavior observed: Confused/disoriented, has difficulty sv remembering/follow instructions, has impaired decision making, has decreased level of consciousness, unable to follow instructions, repeated attempts to remove/tamper lines/tubes/IV med devices \T\ wound dressing, Less restrictive alternatives attempted: decrease environmental stimuli, 1:1 patient care, placed near Nurse station, family at bedside, lines/tubes covered, eliminated unnecessary lines/tubes, Alternative interventions: Ineffective. Clinical justification for use: airway protection, line protection, patient safety, Mental status: agitated/restless, confused, Cognition: poor judgement, poor safety awareness, impulsive, poor attention/concentration, unable to follow commands, Circulation: Within defined parameters (based on Cardiovascular assessment) Skin integrity: Within defined parameters (based on Integumentary assessment) Signs of injury related to restraint: No injuries noted. Range of Motion (ROM): performed. Elimination/Hygiene: with urinary catheter, Restraint status: Side rails up x 4 Continued. Soft wrist restraint (Right) Continued. Soft wrist restraint (Left) Continued. Criteria to discontinue Restraint not met. Restraint continued. 16:43 Non-Violent Restraint: Criteria to discontinue restraint met:Patient no longer exhibits sv self injurious behaviors. Restraint Discontinued on October 26, 2018 at 16:43 Effective alternative interventions implemented: decreased environmental stimuli, placed near Nurse station, reoriented to location, family at bedside, verbal de-escalation performed. Administered Medications: Discontinued: Propofol 5 mcg/kg/min IV at calculated rate continuous; titrate per protocol (titrate by 5-10mcg/kg/min every 10 min to max rate of 50 mcg/kg/min) 12:30 Drug: Propofol 5 mcg/kg/min Route: IV; Rate: calculated rate; Site: right antecubital; sv 13:05 Follow up: Rate change 10 calculated rate sv 13:10 Follow up: Rate change 15 calculated rate sv 14:32 Follow up: Rate change 25 calculated rate sv 15:45 Follow up: Rate change 15 calculated rate; Decrease per Dr Goff to get ready for sv extubation. 13:22 Drug: VecuroNIUM 10 mg Route: IVP; Site: right antecubital; sv 13:49 Follow up: Response: No adverse reaction; Marked relief of symptoms sv 13:49 Drug: NS 0.9% 1000 ml Route: IV; Rate: 1000 ml; Site: right antecubital; sv 14:45 Follow up: Response: No adverse reaction; IV Status: Completed infusion; IV Intake: sv 1000ml 14:32 Drug: VecuroNIUM 10 mg Route: IVP; Site: right antecubital; sv 15:00 Follow up: Response: No adverse reaction; Marked relief of symptoms sv 15:11 Drug: LevaQUIN 500 mg Volume: 100 ml; Route: IVPB; Infused Over: 60 mins; Site: left sv antecubital; 16:11 Follow up: Response: No adverse reaction; IV Status: Completed infusion; IV Intake: tw2 100ml 15:11 Drug: Flagyl 500 mg Volume: 100 ml; Route: IVPB; Rate: 200 ml/hr; Infused Over: 30 sv mins; Site: left antecubital; 16:10 Follow up: Response: No adverse reaction; IV Status: Completed infusion; IV Intake: tw2 100ml 16:11 Drug: vancoMYCIN 1.5 grams Route: IVPB; Rate: calculated rate; Site: left antecubital; tw2 19:16 Follow up: IV Status: Completed infusion; IV Intake: 500ml tl2 16:30 Drug: Potassium Chloride 20 mEq Route: IV; Rate: calculated rate; Site: right sv antecubital; 19:46 Follow up: IV Status: Completed infusion; IV Intake: 100ml bb 16:30 Drug: Potassium Effervescent Tablet 50 mEq Route: PO; sv 17:07 Follow up: Response: No adverse reaction sv 16:54 CANCELLED (Physician Discretion): Potassium Chloride 40 mEq PO once sv 17:06 Drug: Zofran 4 mg Route: IVP; Site: right antecubital; sv 17:07 Follow up: Response: No adverse reaction sv Intake: 14:45 IV: 1000ml; Total: 1000ml. sv 16:10 IV: 100ml; Total: 1100ml. tw2 16:11 IV: 100ml; Total: 1200ml. tw2 19:16 IV: 500ml; Total: 1700ml. tl2 19:46 IV: 100ml; Total: 1800ml. bb Output: 16:40 Gastric: 600ml (OGT); Total: 600ml. sv Outcome: 18:02 Decision to Hospitalize by Provider. kdr 20:11 Patient left the ED. bb Signatures: Dispatcher [employer] Gwen Harris RN RN Jamshid Clemente MD MD kdr Buechter, Jesse jb2 Nicole Hansen RN RN bb Martinez, Eric em1 Cindi Barillas RN RN hb Wise, Tara, RN RN tw2 Janis Mills RN RN tl2 Anushka Cota 3 Corrections: (The following items were deleted from the chart) 13:41 13:36 Presenting complaint: states: no recent complaints of chest pain, SOB, sv cough, congestion, no family issues or stressors. sv 18:55 12:17 Maintain EMS IV. Dressing intact. Site clean \T\ dry. Gauge \T\ site: 20G R hand. sv sv 19:51 16:58 BP 151 / 95; Pulse 91bpm; Resp 14bpm; Pulse Ox 100% 2 lpm Nasal Cannula; sv bb
--- NOTE | 2018-10-26 19:23 | RAD REPORT ---
EXAM DESCRIPTION: MRI - Brain W/Wo Cont - 10/26/2018 6:42 pm CLINICAL HISTORY: Transient alteration of awareness COMPARISON: None. TECHNIQUE: Sagittal and axial T1-weighted images were obtained. Axial PD/heavily T2-weighted and T2- FLAIR images were obtained along with axial DWI/ADC mapping sequences. Coronal heavily T2 weighted s equence obtained. Axial and coronal post-contrast T1-weighted images were also obtained. A 20 ml Mul tihance contrast following utilized. FINDINGS: No intracranial hemorrhage, mass or acute infarction. There is no edema or shift of midli ne structures. No extra-axial fluid collections. Christine-matter/white matter junction is preserved. Sig nal voids are seen as a normal finding in the major intracranial vessels. No sella or supra sella abn ormality. There is minimal tonsillar ectopia as an incidental finding. Post-contrast images show normal enhancement. No dural thickening. Mastoid air cells are clear. No acute paranasal sinus finding. There are multiple polyps or retention cysts in the maxillary sinuses. No globe or orbital content abnormality. IMPRESSION: Negative contrast enhanced MRI of the Brain for acute or significant finding.
--- NOTE | 2018-10-26 19:26 | RAD REPORT ---
EXAM DESCRIPTION: MRI - MRA Head Wo Cont - 10/26/2018 6:41 pm CLINICAL HISTORY: Stroke-like symptoms, transient alteration of awareness COMPARISON: None. TECHNIQUE: Axial and coronal 3D [id number] image acquisition was performed. 3D rotational images were generated with source and reconstruction images reviewed. Horizontal and vertical axis rotation al views generated using MIP protocol. FINDINGS: No aneurysm or vascular malformation identified. No vasculitis findings. No focal or diffu se vascular process identifiable. Patient has normal variant persistent origin of the left post erior cerebral artery. Distal right vertebral artery is small but otherwise unremarkable. IMPRESSION: Unremarkable MRA head examination.
--- NOTE | 2018-10-26 19:28 | RAD REPORT ---
EXAM DESCRIPTION: MRI - MRA Neck W/Wo Cont - 10/26/2018 6:41 pm CLINICAL HISTORY: Stroke-like symptoms, transient alteration of awareness TECHNIQUE: MR angiography of the cervical vasculature performed. Coronal imaging plane acquisition u tilized. A 20 MultiHance contrast volume was utilized. Coronal reformatted images were generated and reviewed. Vertical axis 3D rotational projections obtained using maximum intensity projection protoco l. FINDINGS: Aortic arch is 3 vessel configuration with no origins stenosis. Vertebral artery origins u nremarkable as well. No aneurysm or vascular malformation. No dissection findings. There is no stenos is or focal vascular finding. IMPRESSION: Unremarkable MRA neck examination.
[2018-10-26] MEDS ORDERED: TRAMADOL HCL 50 MG TAB PO PRN (19:42)
[2018-10-26] MEDS ORDERED: ONDANSETRON 4 MG/2 ML VIAL IV PRN (19:42)
[2018-10-26] MEDS ORDERED: ACETAMINOPHEN 500 MG TAB PO PRN (19:42)
[2018-10-26] MEDS ORDERED: ALBUTEROL 2.5 MG/3 ML NEB SOL NEB PRN (19:42)
[2018-10-26] MEDS ORDERED: IPRATROPIUM BROM 0.5MG/2.5ML NEB PRN (19:42)
[2018-10-26] MEDS ORDERED: LORazepam 2 MG/ML VIAL IV PRN (19:42)
[2018-10-26] MEDS ORDERED: MAGNESIUM SULFATE 1 gm IVPB 1 GM/100 ML BAG IV ONE (20:29)
[2018-10-26] MEDS: ATORVASTATIN 40 MG TAB PO SCH (20:43)
[2018-10-26] MEDS: NA CHLORIDE 0.9% 1,000 ML IV SCH (20:43)
[2018-10-26] MEDS ORDERED: LOSARTAN POTASSIUM 50 MG TABLET PO SCH (21:00)
[2018-10-26 22:03] LABS: CKMB Creatine Kinase MB 4.8 ng/mL (0.3-3.6); Thyroid Stimulating Hormone 0.85 uIU/mL (0.360-3.740)
[2018-10-26 22:04] LABS: Troponin I 0.56 ng/mL (0.0-0.045)
[2018-10-27 05:05] LABS: Absolute Lymphocytes (CBC) 1.2 K/uL (0.7-4.9); Absolute Monocytes 0.9 K/uL (0.1-1.3); Absolute Neutrophil 19.3 K/uL (1.8-8.0); Basophils % 0.1 % (0-1.3); Eosinophils % 0.3 % (0-4.4); Hematocrit 37.3 % (39.6-49.0); Lymphocytes % 5.5 % (15.3-44.8); MPV 8.4 fL (7.6-11.3); RBC Red Blood Cell Count 4.16 M/uL (4.33-5.43)
[2018-10-27 05:23] LABS: CKMB Creatine Kinase MB 3.5 ng/mL (0.3-3.6); Troponin I 0.42 ng/mL (0.0-0.045)
[2018-10-27 05:24] LABS: ALT/SGPT 29 U/L (12-78); AST/SGOT 19 U/L (15-37); Albumin 3.3 g/dL (3.4-5.0); Alkaline Phosphatase 68 U/L (45-117); BUN Blood Urea Nitrogen 9 mg/dL (7-18); Bicarbonate 28 mmol/L (21-32); Bilirubin Total 0.5 mg/dL (0.2-1.0); Glucose Level 100 mg/dL (74-106); HDL Cholesterol 39 mg/dL (40-60); LDL Cholesterol, Calculated 74 (<130); Protein, Total 6.3 g/dL (6.4-8.2); Sodium Level 146 mmol/L (136-145)
[2018-10-27] MEDS: NA CHLORIDE 0.9% 1,000 ML IV SCH (05:42)
[2018-10-27 06:42] VITALS: BMI 30.9
--- NOTE | 2018-10-27 08:01 | RAD REPORT ---
EXAM DESCRIPTION: - CP - 10/26/2018 9:05 pm CLINICAL HISTORY: Syncope COMPARISON: None. TECHNIQUE: Real-time sonographic evaluation of both carotid systems was performed. Christine scale and Do ppler interrogation were performed with waveform tracing bilaterally. FINDINGS: Normal high resistance waveforms are noted in both external carotid arteries. The common c arotid arteries and internal carotid arteries show normal low resistance waveforms. No significant plaque formation is seen. Peak systolic and end diastolic velocity values and the ICA/ CCA ratios are in the non-hemodynamically significant range. Antegrade flow seen in both vertebral arteries. Velocity values and ratios were recorded and are retained in the patient's imaging records. IMPRESSION: No significant atherosclerotic changes noted. No evidence of a hemodynamically significant stenosis.
--- NOTE | 2018-10-27 08:02 | RAD REPORT ---
EXAM DESCRIPTION: RAD - Chest Single View - 10/27/2018 6:36 am CLINICAL HISTORY: Atelectasis, shortness of breath COMPARISON: October 26 chest film, October 26 CT chest TECHNIQUE: AP portable chest image was obtained 0550 hours . FINDINGS: No acute lung parenchymal process. No measurable atelectasis on portable imaging. Very min imal posterior gutter atelectasis can still be obscured. Heart and vasculature are normal. No measura ble pleural effusion and no pneumothorax. No acute bony abnormality seen. No acute aortic findings escoto spected. IMPRESSION: No acute cardiopulmonary process.
[2018-10-27 08:37] LABS: Blood Morphology Comment NOT SEEN (NOT SEEN); Platelet Estimate ADEQ
[2018-10-27] MEDS: ASPIRIN EC 81 MG TAB PO SCH (08:47)
[2018-10-27] MEDS: THIAMINE HCL 100 MG TABLET PO SCH (08:47)
[2018-10-27] MEDS: ENOXAPARIN 40 MG/0.4 ML SQ SCH (08:47)
[2018-10-27] MEDS: LOSARTAN POTASSIUM 50 MG TABLET PO SCH ×2 (08:47→21:14)
[2018-10-27] MEDS: FOLIC ACID 1 MG TABLET PO SCH (08:47)
--- NOTE | 2018-10-27 09:56 | P.PN ---
Subjective Date of Service: 10/27/18 Primary Care Provider: Dr. Galloway Chief Complaint: Syncope Subjective: Improving (Patient admits using cocaine yesterday) Physical Examination - Vital Signs Temperature: 98.9 F Blood Pressure: 169/106 Pulse: 90 Respirations: 20 Pulse Ox (%): 98 - Physical Exam General: Alert, In no apparent distress, Oriented x3, Cooperative HEENT: Atraumatic Neck: Supple Respiratory: Clear to auscultation bilaterally, Normal air movement Cardiovascular: Normal pulses, Regular rate/rhythm Gastrointestinal: Normal bowel sounds, Soft and benign, Non-distended, No masses , No rebound, No guarding Musculoskeletal: No erythema, No tenderness, No warmth Integumentary: No tenderness/swelling, No erythema, No warmth, No cyanosis Neurological: Normal speech, Normal strength at 5/5 x4 extr, Normal tone, Normal affect - Studies Laboratory Data (last 24 hrs) 10/26/18 12:30: APTT 62.5 H 10/26/18 12:30: PT 13.8 H, INR 1.18 10/26/18 12:30: WBC 12.9 H, Hgb 15.1, Hct 44.3, Plt Count 298 10/26/18 12:30: Sodium 144, Potassium 2.8 L*, BUN 14, Creatinine 1.29, Glucose 207 H, Magnesium 1.8, Total Bilirubin 1.0, AST 30, ALT 38, Alkaline Phosphatase 72 Medications List Reviewed: Yes Assessment & Plan Discharge Plan: Home Plan to discharge in: 48 Hours Physician Review Additional Text: Impression: Syncope likely related cardiac related with noted cocaine use and elevated troponin Acute respiratory distress Hypertension Cocaine positive Fatty liver Hypokalemia Dehydration Alcohol abuse Plan: Syncope likely cardiac related with noted cocaine use and elevated troponin: Patient patient was extubated yesterday in the emergency room. MRI/MRA of brain and negative. Carotid Doppler negative. Blood pressure is elevated. Will increase losartan to 50 mg 1 pill twice daily. Will add Norvasc 10 mg daily. Continue to adjust medication. Cardiac enzymes elevated. Await further evaluation by Cardiology. Will discuss with cardiology. Patient will likely require further cardiac evaluation to further address. Continue with aspirin, statin medication and DVT prophylaxis. Continue to adjust blood pressure medication. Cocaine cessation addressed in detail. Patient plans to quit. He understands risks of continued use. Acute respiratory distress with atelectasis: Patient was extubated in the emergency room. Room-air saturations not within normal range. No need for pulmonary evaluation. No evidence of pneumonia. Atelectasis noted. Will provide incentive spirometer. Will wean off oxygen. Maintain sats above 90%. No evidence of infection at this time. No need for antibiotics at this time. Hypertension: Will increase losartan to 50 mg 1 pill twice daily. Norvasc added. Continue to monitor and adjust appropriately. Cocaine positive: New finding noted. Patient admits to use. Risks addressed in detail. Patient understands the importance of cessation. Fatty liver: Will provide education. Patient may follow up with GI as an outpatient. Hypokalemia: Continue monitor and adjust appropriately. Dehydration: Stable will discontinue IV fluids. Alcohol abuse: Will monitor for alcohol withdrawal. Continue folate and thiamine. Will continue to address alcohol cessation. Dehydration: Continue IV fluids. Will monitor and adjust appropriately. Time Spent Managing Pts Care (In Minutes): 55
--- NOTE | 2018-10-27 10:17 | EKG ---
Test Date: 2018-10-26 Test Time: 12:22:39 Battery Installer: TOPHER MEASUREMENT RESULTS: Intervals: Rate: 121 MT: 138 QRSD: 94 QT: 342 QTc: 485 [place]: P: 55 MT: 138 QRS: 30 T: 73 INTERPRETIVE STATEMENTS: Sinus tachycardia Cannot rule out Inferior infarct, age undetermined Abnormal ECG No previous ECG available for comparison Electronically Signed On 10-27-18 10:16:24 CDT by Kailash Shukla
[2018-10-27] MEDS: METOPROLOL TAR 50 MG TAB PO SCH ×2 (10:54→21:13)
[2018-10-27] MEDS: HYDRALAZINE HCL 20 MG/ML VIAL IV PRN (12:47)
[2018-10-27] MEDS: ATORVASTATIN 40 MG TAB PO SCH (21:14)
[2018-10-28 04:50] LABS: Absolute Lymphocytes (CBC) 3.1 K/uL (0.7-4.9); Absolute Monocytes 0.8 K/uL (0.1-1.3); Absolute Neutrophil 8.3 K/uL (1.8-8.0); Basophils % 0.3 % (0-1.3); Eosinophils % 2.4 % (0-4.4); Hematocrit 38.9 % (39.6-49.0); Lymphocytes % 24.7 % (15.3-44.8); MPV 8.2 fL (7.6-11.3); Monocytes % 6.7 % (3.3-12.3); RBC Red Blood Cell Count 4.31 M/uL (4.33-5.43)
[2018-10-28 05:08] LABS: Albumin 3.6 g/dL (3.4-5.0); Bilirubin Total 0.7 mg/dL (0.2-1.0); Magnesium 2.2 mg/dL (1.8-2.4); Potassium 4.2 mmol/L (3.5-5.1)
--- NOTE | 2018-10-28 08:11 | P.PN ---
Subjective Date of Service: 10/28/18 Primary Care Provider: Dr. Galloway Chief Complaint: Syncope Subjective: Improving, Doing well Physical Examination - Vital Signs Temperature: 98.5 F Blood Pressure: 139/80 Pulse: 64 Respirations: 16 Pulse Ox (%): 97 - Physical Exam General: Alert, In no apparent distress, Oriented x3, Cooperative HEENT: Atraumatic Neck: Supple Respiratory: Clear to auscultation bilaterally, Normal air movement Cardiovascular: Normal pulses, Regular rate/rhythm Gastrointestinal: Normal bowel sounds, Soft and benign, Non-distended, No tenderness, No masses, No rebound, No guarding Musculoskeletal: No erythema, No tenderness, No warmth Integumentary: No tenderness/swelling, No erythema, No warmth, No cyanosis Neurological: Normal speech, Normal strength at 5/5 x4 extr, Normal tone, Normal affect - Studies Medications List Reviewed: Yes Assessment & Plan Discharge Plan: Home Plan to discharge in: 24 Hours Physician Review Additional Text: Impression: Syncope likely related cardiac related with noted cocaine use and elevated troponin Acute respiratory distress Hypertension Cocaine positive Fatty liver Hypokalemia Dehydration Alcohol abuse Plan: Syncope likely cardiac related with noted cocaine use and elevated troponin: Patient has done well. Blood pressure medication adjusted yesterday with good improvement. Case discussed with cardiology yesterday. Cardiology plans for heart catheterization tomorrow. If heart catheterization unremarkable patient can be discharged as early as tomorrow. Patient currently on aspirin 81 mg daily, Lipitor 40 mg daily, losartan 50 mg 1 pill twice daily, and metoprolol 50 mg 1 pill twice daily. Patient remains on DVT prophylaxis-Lovenox. Cocaine cessation education addressed. Patient plans to quit. Patient understands risk of continued cocaine use. I will turn the service over to Dr. Chaves tomorrow. I will go over the plan of care with her. Acute respiratory distress with atelectasis: Patient has done well since extubation. Continue with incentive spirometer. No need for antibiotics at this time. No evidence of infection. Hypertension: Medication has been adjusted. Patient remained stable on losartan 50 mg 1 pill twice daily and metoprolol 50 mg 1 pill twice daily. Cocaine positive: Cocaine cessation education addressed in detail. Patient understands risks. Patient plans to quit. This will need to be further monitored as an outpatient. Fatty liver: Will provide education at discharge. Patient may follow up with GI as an outpatient to further address. Hypokalemia: Continue monitor and adjust appropriately. Dehydration: Stable. Alcohol abuse: Will monitor for alcohol withdrawal. Continue folate and thiamine. Will continue to address alcohol cessation. Time Spent Managing Pts Care (In Minutes): 55
[2018-10-28] MEDS: LOSARTAN POTASSIUM 50 MG TABLET PO SCH ×2 (08:26→20:27)
[2018-10-28] MEDS: ASPIRIN EC 81 MG TAB PO SCH (08:26)
[2018-10-28] MEDS: FOLIC ACID 1 MG TABLET PO SCH (08:26)
[2018-10-28] MEDS: ENOXAPARIN 40 MG/0.4 ML SQ SCH (08:27)
[2018-10-28] MEDS: METOPROLOL TAR 50 MG TAB PO SCH ×2 (08:27→20:28)
[2018-10-28] MEDS: THIAMINE HCL 100 MG TABLET PO SCH (08:27)
[2018-10-28] MEDS ORDERED: AMLODIPINE 10 MG TAB PO SCH (09:00)
--- NOTE | 2018-10-28 13:52 | CON ---
Date of Consultation: 10/27/2018 Reason For Consultation: Syncope, unresponsiveness requiring intubation. History Of Present Illness: Mr. Prieto is only 48 years old. Has a history of hypertension and ve ry strong family history of heart disease. He also has a history of cocaine use. He has used it twi ce in the last week or so. Was found unresponsive, intubated. In the emergency room, he was found t o have a troponin of 0.42. He had elevated white count and low potassium of 2.8. He was hypertensiv e. No arrhythmias were documented after he was brought to the emergency room. We do not have a rhyt hm strip that shows what rhythm he was in when he was found unresponsive. The patient does not remem earl having the syncopal spell. There were no postictal or preictal symptoms. There was no chest win n reported prior to the event. Past Medical History: Include hypertension. Allergies: NONE. Review of Systems: Negative. Social History: Positive for cocaine use, alcohol use. No tobacco. Family History: Positive for heart disease on his mom's side, dad's side and his uncle's and aunt's. Medications: At home include losartan and Motrin. Physical Examination: Vital Signs: Stable. He was in a sinus rhythm to sinus tach. Blood pressure is 153/94. HEENT: Negative. Neck: Supple without any bruit, lymphadenopathy, JVD, or thyromegaly. Chest: Clear to auscultation and percussion. Cardiac: Revealed a regular rhythm and rate without any murmurs, gallops, or rubs. Abdomen: Benign. Extremities: Revealed no clubbing, cyanosis, or edema. Diagnostic Data: Include a white count of 21,000. Potassium is 2.8 that was corrected to 4.1. Trop onin is 0.42. His CT of the head, MRI of the head were negative. Chest x-ray shows some atelectasis at the bases. Impression And Plan: Syncopal episode that could have been related to arrhythmia secondary to the hy pokalemia, which may be related to the cocaine use. The patient's troponin is 0.42. He has a histor y of hypertension. Strong family history of heart disease in his family in the 40s, and 50s of their age. There is an echocardiogram pending for Monday, but I think the patient is already extubated. I discussed the case with him and his family and I think a heart catheterization is indicated because of syncope, positive troponin, strong family history of heart disease. They seem to understand the risk and the benefits of the procedure and they agreed to proceed. RADHA Voice ID: [id number] Report ID: [id number]
--- NOTE | 2018-10-28 14:37 | PN ---
Date of Progress Note: 10/28/2018 Mr. Prieto was moved from the ICU to the regular telemetry floor. He had come in with a sudden syn cope requiring intubation, unresponsiveness, positive troponin, strong family history. He was initia lly hypokalemic. Positive for cocaine use. Because of his positive troponin, sudden syncope, no [place] dence of arrhythmia and it was decided to do a heart catheterization on him on 10/29/2018. He agrees to proceed, understands the risk and the benefits. The case was discussed with Dr. Samaniego. MITZI/ATILIO Voice ID: [id number] Report ID: [id number]
[2018-10-28] MEDS: ATORVASTATIN 40 MG TAB PO SCH (20:27)
[2018-10-29] MEDS: METOPROLOL TAR 50 MG TAB PO SCH (05:24)
[2018-10-29] MEDS: ASPIRIN EC 81 MG TAB PO SCH (05:24)
[2018-10-29 06:00] LABS: Absolute Lymphocytes (CBC) 2.4 K/uL (0.7-4.9); Absolute Monocytes 0.7 K/uL (0.1-1.3); Absolute Neutrophil 6.4 K/uL (1.8-8.0); Basophils % 0.5 % (0-1.3); Hematocrit 40.6 % (39.6-49.0); Lymphocytes % 24.2 % (15.3-44.8); MPV 7.9 fL (7.6-11.3); Monocytes % 7.2 % (3.3-12.3); RBC Red Blood Cell Count 4.51 M/uL (4.33-5.43)
[2018-10-29 06:19] LABS: Albumin 3.7 g/dL (3.4-5.0)
[2018-10-29] MEDS ORDERED: HEPA 1000U/500MLS 2,000 UNIT/1,000 ML BAG IV ONE ×2 (07:30→14:30)
[2018-10-29] MEDS: FOLIC ACID 1 MG TABLET PO SCH (08:55)
[2018-10-29] MEDS: LOSARTAN POTASSIUM 50 MG TABLET PO SCH (08:55)
[2018-10-29] MEDS: THIAMINE HCL 100 MG TABLET PO SCH (08:56)
--- NOTE | 2018-10-29 10:41 | P.DS ---
Admission Date: 10/26/18 Discharge Date: 10/29/18 Primary Care Provider: Dr. Galloway Disposition: ROUTINE DISCHARGE Discharge Condition: GOOD Reason for Admission: Syncope Consultations: Cardiology - Problems (1) Syncope and collapse Current Visit: Yes Status: Resolved (2) Cocaine abuse Current Visit: Yes Status: Chronic (3) Cardiac abnormality Current Visit: Yes Status: Acute (4) Respiratory failure Current Visit: Yes Status: Resolved Qualifiers: Chronicity: acute Respiratory failure complication: hypoxia Qualified Code(s): J96.01 - Acute respiratory failure with hypoxia (5) HTN (hypertension) Current Visit: Yes Status: Chronic Qualifiers: Hypertension type: essential hypertension Qualified Code(s): I10 - Essential (primary) hypertension Brief History of Present Illness: 48 yo CM presented to the ER intubated by EMS. Most of the history came from the ER physician and family. Family reports that the patient was to doing well early this morning. His had seen him in bed. His son had seen him around 10:30. Then around 11 o' clock the son heard a thud. He was found on the ground. He EMS was immediately called. EMS noted that he was tachycardic and hypotensive. He was also agitated at that time he was intubated. Patient was sent to the ER for further evaluation. and son report that the patient was doing well over the last day and this morning. No indication of fever, chills, nausea, vomiting , chest pain, abdominal pain. Patient with prior history of hypertension and takes losartan. In the ER patient remained intubated. On lab he was found to be positive for cocaine. CT head unremarkable. White count 12.9, pro calcitonin negative. Lactic acid elevated. Initial troponin less than 0.02. Sodium 144, potassium 2.8, BUN of 14, creatinine 1.29 with a GFR 60. CT chest/abdomen and pelvis unremarkable except for atelectasis and fatty liver. Patient was admitted for further evaluation. When I saw the patient the ER, patient was alert. Family at bedside. reports that the patient has never used drugs in the past. reports that he drinks 3 times a week. He drinks about 8-10 beers a day. confirms that he has hypertension and takes losartan. No other major medical issues noted. Hospital Course: Overall during the hospital stay patient remained stable The patient was initially admitted to the hospital after he was found to have a syncopal episode and collapsed at home. Patient had extensive workup done here in the hospital along with lab and imaging as well. Patient due to severe agitation was intubated in the ER as he was unable to protect his airway. Patient was started on vent protocol also did well overall and was extubated in next 24 hr of hospital stay. Patient initial labs and imaging are consistent with syncopal episode most likely related to cardiogenic abnormality secondary to cocaine abuse. Cardiology was consulted. Patient was started on ACS protocol. Patient was monitored in the ICU. Patient was scheduled for a cardiac catheterization. Cardiac catheterization was done here in the hospital which was negative for any acute abnormality. Refer to the cardiac cath note for further details regarding the catheterization. Patient did well overall postprocedure and this was cleared for discharge home from cardiology. Patient was able to ambulate tolerate his diet and had no chest pain in all his lab work was looking within normal limits and this was discharged home under stable condition was asked to follow up with primary care provider along with cardiology in about 1-2 weeks post discharge. Patient was also educated extensively on alcohol and cocaine abstinence. Patient demonstrated understanding and this was discharged home under stable condition. Vital Signs/Physical Exam: Temp Pulse Resp BP Pulse Ox 98.5 F 61 18 162/85 H 98 10/29/18 08:00 10/29/18 08:00 10/29/18 08:00 10/29/18 08:00 10/29/18 08:00 General: Alert, In no apparent distress HEENT: Atraumatic, PERRLA, EOMI Neck: Supple, JVD not distended Respiratory: Clear to auscultation bilaterally, Normal air movement Cardiovascular: Regular rate/rhythm, Normal S1 S2 Gastrointestinal: Normal bowel sounds, No tenderness Musculoskeletal: No tenderness Integumentary: No rashes Neurological: Normal speech, Normal tone, Normal affect Lymphatics: No axilla or inguinal lymphadenopathy Laboratory Data at Discharge: WBC 9.8 K/uL (4.3-10.9) D 10/29/18 05:43 Hgb 14.4 g/dL (13.6-17.9) 10/29/18 05:43 Hct 40.6 % (39.6-49.0) 10/29/18 05:43 Plt Count 252 K/uL (152-406) 10/29/18 05:43 PT 13.8 SECONDS (9.5-12.5) H 10/26/18 12:30 INR 1.18 10/26/18 12:30 APTT 62.5 SECONDS (24.3-36.9) H 10/26/18 12:30 Sodium 142 mmol/L (136-145) 10/29/18 05:43 Potassium 4.0 mmol/L (3.5-5.1) 10/29/18 05:43 BUN 18 mg/dL (7-18) 10/29/18 05:43 Creatinine 1.19 mg/dL (0.55-1.3) 10/29/18 05:43 Glucose 95 mg/dL (74-106) 10/29/18 05:43 Magnesium 2.0 mg/dL (1.8-2.4) 10/29/18 05:43 Total Bilirubin 1.0 mg/dL (0.2-1.0) 10/29/18 05:43 AST 23 U/L (15-37) 10/29/18 05:43 ALT 42 U/L (12-78) 10/29/18 05:43 Alkaline Phosphatase 70 U/L (45-117) 10/29/18 05:43 Troponin I 0.42 ng/mL (0.0-0.045) H 10/27/18 04:22 Triglycerides 148 mg/dL (<150) 10/27/18 04:22 Cholesterol 143 mg/dL (<200) 10/27/18 04:22 HDL Cholesterol 39 mg/dL (40-60) L 10/27/18 04:22 Cholesterol/HDL Ratio 3.67 10/27/18 04:22 Home Medications: Ibuprofen 400 mg PO PRN PRN 10/26/18 Losartan Potassium 50 mg PO BID 10/26/18 Patient Discharge Instructions: Please f.u with PCP And Dr Shepherd with 1 to 2 week post discharge. No new medication Diet: Regular Activity: Ad edna Followup: Ramirez Shepherd MD [ACTIVE - CAN ADMIT] - 1 Week
--- NOTE | 2018-10-29 11:32 | ECHO ---
HEIGHT: 5 ft 9 in WEIGHT: 209 lb 3.2 oz DATE OF STUDY: 10/29/[address]: Elvin Samaniego DO 2-DIMENSIONAL: YES M.MODE: YES DOPPLER: YES COLOR FLOW: YES TDS: NO PORTABLE: NO DEFINITY: NO BUBBLE STUDY: NO DIAGNOSIS: HYPERTENSION, SYNCOPE CARDIAC HISTORY: CATHERIZATION: NO SURGERY: NO PROSTHETIC VALVE: NO PACEMAKER: NO MEASUREMENTS (cm) DIASTOLIC (NORMALS) SYSTOLIC (NORMALS) IVSd 0.9 (0.6-1.2) LA Diam 3.9 (1.9-4.0) LVEF 69% LVIDd 4.7 (3.5-5.7) LVIDs 2.9 (2.0-3.5) %FS 39% LVPWd 1.1 (0.6-1.2) Ao Diam 3.0 (2.0-3.7) 2 DIMENSIONAL ASSESSMENT: RIGHT ATRIUM: NORMAL LEFT ATRIUM: NORMAL RIGHT VENTRICLE: NORMAL LEFT VENTRICLE: NORMAL TRICUSPID VALVE: NORMAL MITRAL VALVE: NORMAL PULMONIC VALVE: NORMAL AORTIC VALVE: NORMAL PERICARDIAL EFFUSION: NONE AORTIC ROOT: NORMAL LEFT VENTRICULAR WALL MOTION: NORMAL DOPPLER/COLOR FLOW: NORMAL COMMENTS: NORMAL 2D ECHOCARDIOGRAM WITH DOPPLER. TECHNOLOGIST: Bernardino MONTIEL
[2018-10-29] MEDS ORDERED: ATROPINE SULF 1 MG/10 ML SYR IV ONE (15:16)
[2018-10-29] MEDS ORDERED: NA CHLORIDE 0.9% 0 ML ONE (15:17)
[2018-10-29] MEDS ORDERED: NA CHLORIDE 0.9% 500 ML ONE (15:33)
[2018-10-29] MEDS ORDERED: FENTANYL CITR 100 MCG/2 ML ONE (15:39)
[2018-10-29] MEDS ORDERED: MIDAZOLAM HCL 2 MG/2 ML INJ ONE (15:39)
[2018-10-29] MEDS ORDERED: HEPARIN 5000 UNIT/ML 1 ML VIAL ONE (15:40)
[2018-10-29] MEDS ORDERED: NITROGLYCERIN 100 MCG/ML SYR (for cath lab use only) IV ONE (15:40)
[2018-10-29] MEDS ORDERED: NICARDIPINE HCL 25 MG/10 ML IV ONE (15:40)
[2018-10-29] MEDS ORDERED: NITROGLYCERIN/D5W 0 MG/0 ML BTL IV ONE (15:40)
[2018-10-29 17:40] VITALS: O2SAT 95
[2018-10-29] MEDS: HYDRALAZINE HCL 20 MG/ML VIAL IV PRN (20:15)
[2018-10-29 20:50] VITALS: BP 140/80
[2018-10-29 21:08] VITALS: TEMP 97.9
--- NOTE | 2018-10-30 02:54 | OP ---
Surgeon: Ramirez Shepherd MD Procedures: Left heart catheterization, coronary and left ventricular angiography. Procedure Findings: The patient has normal coronary arteries, normal left ventricular ejection fract ion, and normal pressures. Procedure In Detail: The patient was brought to the cardiac poultry farm laborer in a fasting state, sedated wit h Versed and fentanyl. Prepared and draped in usual sterile fashion. Right radial approach was used . Tissues near the right radial artery were anesthetized with 1% lidocaine. The artery was entered using a 21-gauge needle. A 0.021 inch diameter guidewire was used to cannulate the artery and then a 6-[place] sheath was placed. It was flushed and a radial cocktail was administered through the sheat h consisting of nicardipine, heparin, and nitroglycerin. We used a TIG catheter, guided to the ascen ding aorta using fluoroscopy and a [employer]BEAT inc Glidewire with a short radius J-tip. We were able to use t he TIG catheter angiogram right coronary, left coronary, and left ventricle. At the end of the proce dure, the catheter was straightened out using a J-wire and removed. The sheath was flushed, removed, and the arteriotomy was closed with a TR band. Complications From The Procedure: None. Estimated Blood Loss: 5 cc. Graining Press Operator: Celsa Corcoran. GENEVA/ATILIO Voice ID: [id number] Report ID: [id number]
== END 2018-10-29 20:50 | disposition home or self-care (01) | DRG 287 ==
LOC: ER 12:17 → ERHOLD 15:36 → 3RD-ICU 19:46 → 2ND 10-27 13:35
PROVIDERS: ADMIT Family Medicine; ATTEND Family Medicine
PROC: 5A1935Z Respiratory Ventilation, Less than 24 Consecutive Hours (ICD-10-PCS; 2018-10-26)
PROC: 4A023N7 Measurement of Cardiac Sampling and Pressure, Left Heart, Percutaneous Approach (ICD-10-PCS; principal; 2018-10-29)
PROC: B2111ZZ Fluoroscopy of Multiple Coronary Arteries using Low Osmolar Contrast (ICD-10-PCS; 2018-10-29)
PROC: B2151ZZ Fluoroscopy of Left Heart using Low Osmolar Contrast (ICD-10-PCS; 2018-10-29)
DX: I51.9 Heart disease, unspecified (principal); J98.11 Atelectasis; R55 Syncope and collapse; F14.10 Cocaine abuse, uncomplicated; I10 Essential (primary) hypertension; E87.6 Hypokalemia; K76.0 Fatty (change of) liver, not elsewhere classified; E86.0 Dehydration; F10.10 Alcohol abuse, uncomplicated; Z82.49 Family history of ischemic heart disease and other diseases of the circulatory system
CPT/HCPCS: 36415; 51702; 70450; 70544; 70549; 70553; 71045; 71260; 74177; 80048; 80053; 80061; 80076; 80307; 80320; 80329; 81003; 82550; 82553; 82962; 83605; 83735; 83880; 84132; 84145; 84439; 84443; 84484; 85025; 85610; 85730; 87040; 93005; 93306; 93458; 93880; 94002; 96361; 96365; 96367; 96368; 96375; 99291; 99292; A9577; C1893; J0360; J0583; J1644; J1650; J2250; J2405; J2704; J3010; J3475; J7030; Q9967

== ENCOUNTER 2024-07-19 07:55 | Day surgery (SDC) | payer OTHER ==
[2024-07-08 09:19] LABS: Absolute Basophils 0.1 K/uL (0-0.5); Absolute Eosinophils 0.3 K/uL (0-0.5); Absolute Lymphocytes (CBC) 1.7 K/uL (0.7-4.9); Absolute Monocytes 0.5 K/uL (0.1-1.3); Absolute Neutrophil 4.9 K/uL (1.8-8.0); Basophils % 0.9 % (0-1.3); Eosinophils % 3.6 % (0-4.4); Hematocrit 43.4 % (39.6-49.0); Lymphocytes % 22.6 % (15.3-44.8); MCH 31.3 pg (27.0-35.0); MCHC 34.7 g/dL (32.0-36.0); MCV 90.1 fL (80-100); MPV 7.7 fL (7.6-11.3); Monocytes % 7.1 % (3.3-12.3); Neutrophils % 65.8 % (41.7-73.7); Nucleated Red Blood Cells % 0.1 % (0-0); Platelets 252 thou/uL (152-406); RBC Red Blood Cell Count 4.81 M/uL (4.33-5.43); Red Cell Distribution Width 12.3 % (12.1-15.2)
[2024-07-08 09:34] LABS: Anion Gap 7.5 mEq/L (5.0-15.0); Potassium 4.5 mEq/L (3.5-5.1)
--- NOTE | 2024-07-08 11:08 | EKG ---
Test Date: 2024-07-08 Test Time: 09:59:59 Body Technician/Painter: LILA MEASUREMENT RESULTS: Intervals: Rate: 62 NV: 142 QRSD: 90 QT: 410 QTc: 416 [place]: P: 57 NV: 142 QRS: 16 T: 31 INTERPRETIVE STATEMENTS: Sinus rhythm with premature atrial complexes Nonspecific T wave abnormality Abnormal ECG Compared to ECG 10/26/2018 12:22:39 Atrial premature complex(es) now present T-wave abnormality now present Sinus tachycardia no longer present Myocardial infarct finding no longer present Electronically Signed On 07-08-24 11:08:01 STRIP CUTTER by Mark Beckham
[2024-07-19] MEDS: Ringers Lactate 1,000 ML IV ONE (08:20)
[2024-07-19] MEDS ORDERED: propofoL 200 MG/20 ML VIAL IV ONE ×2 (09:41→09:42)
[2024-07-19] MEDS ORDERED: LIDOCAINE 1% MPF 2 ML AMPULE ONE (09:42)
[2024-07-19 10:35] VITALS: TEMP 97
[2024-07-19 10:58] VITALS: BP 150/94; O2SAT 100
== END 2024-07-19 11:05 | disposition home or self-care (01) ==
LOC: OR 07:55
PROVIDERS: ATTEND Surgery
PROC: 0DBK8ZX Excision of Ascending Colon, Via Natural or Artificial Opening Endoscopic, Diagnostic (ICD-10-PCS; principal; 2024-07-19 09:30)
DX: K63.5 Polyp of colon (principal); R19.5 Other fecal abnormalities; N42.9 Disorder of prostate, unspecified; K57.30 Diverticulosis of large intestine without perforation or abscess without bleeding; K64.8 Other hemorrhoids
CPT/HCPCS: 93005; 85025; 80048; 36415; 88305; 45380; J2704; J7120